=== PATIENT | female | born 1935 | race Caucasian/White ===

== ENCOUNTER 2016-10-26 05:45 | Emergency (ER) | payer MEDICARE, OTHER ==
[~2016-10-26] VITALS: Ht 157.5 cm; Wt 57.6 kg
[2016-10-26] MEDS ORDERED: NORCO 5-325 TA1 EACH PO ×2 (06:21→06:39)
[2016-10-26] MEDS ORDERED: TESSALON PERLE100 MG PO (06:22)
[2016-10-26] MEDS ORDERED: GLUCOPHAGE500 MG PO (06:30)
[2016-10-26] MEDS ORDERED: PENTOXIFYLLINE400 MG PO (06:30)
[2016-10-26] MEDS ORDERED: BUPROPION XL300 MG PO (06:31)
[2016-10-26] MEDS ORDERED: HYDROCODON-ACE1 EAC8 PO (06:33)
[2016-10-26] MEDS ORDERED: METOPROLOL SUC100 MG PO (06:34)
[2016-10-26] MEDS ORDERED: LOVASTATIN40 MG PO (06:35)
[2016-10-26] MEDS ORDERED: ADVAIR 100-501 EACH INH (06:36)
[2016-10-26] MEDS ORDERED: PROAIR RESPICL90 MCG INH (06:36)
[2016-10-26] MEDS ORDERED: SALONPAS-HOT1 EACH TOP (06:37)
[2016-10-26] MEDS ORDERED: MULTI VITAMIN1 EACH (06:37)
--- NOTE | 2016-10-30 08:46 | OR ---
[facility] [address], [place] [address] Signed DATE OF PROCEDURE: 10/26/16 PREOPERATIVE DIAGNOSIS: Dislocated total hip. POSTOPERATIVE DIAGNOSIS: Dislocated total hip. PROCEDURE PERFORMED Closed reduction, right total hip under conscious sedation. SURGEON: Mark Palafox MD RETAIL ASSET PROTECTION SPECIALIST: None. ANESTHESIA: Conscious sedation by Janes Santana CRNA. BLOOD LOSS: None. BRIEF HISTORY Raimundo is an 81-year-old female who suffered a ground level fall this morning. She dislocated her total hip. She has done this several times in the past. She was transported by EMS to [facility] emergency department. Radiographs showed a dislocated hip posteriorly. Risks and benefits of conscious sedation and reduction were discussed with her and she elected to proceed. DESCRIPTION OF PROCEDURE Once consent was obtained, she was placed under conscious sedation. She relaxed enough, the leg was flexed to 100 degrees, internally rotated 30 degrees. Axial traction was then applied with steady external rotation and the hip was felt to reduce. She was then taken into full extension. Post reduction radiographs show concentric reduction with no fractures. She will be discharged after placing her in a hip abduction brace that I have in my office. She will follow up with her orthopedic surgeon in [place] when she returns home. Mark Palafox MD BA/Manuel Electronically Signed By: MARK PALAFOX MD 10/30/16 0846 PATIENT NAME: TOMEKA CODY OPERATIVE REPORT DATE OF : 31 PHYSICIAN: MARK PALAFOX MD REPORT #: [id number] REPORT IS CONFIDENTIAL AND NOT TO BE RELEASED WITHOUT AUTHORIZATION [address] [address] Signed /[id number] Electronically Signed By: MARK PALAFOX MD 10/30/16 0846 PATIENT NAME: TOMEKA CODY OPERATIVE REPORT DATE OF : 31 PHYSICIAN: MARK PALAFOX MD REPORT #: [id number] REPORT IS CONFIDENTIAL AND NOT TO BE RELEASED WITHOUT AUTHORIZATION
== END 2016-10-26 09:05 | disposition home or self-care (01) ==
LOC: ED 05:45
DX: T84.020A Dislocation of internal right hip prosthesis, initial encounter (principal); F17.200 Nicotine dependence, unspecified, uncomplicated; Z88.2 Allergy status to sulfonamides; Z79.84 Long term (current) use of oral hypoglycemic drugs; Z79.51 Long term (current) use of inhaled steroids; Z79.899 Other long term (current) drug therapy
CPT/HCPCS: 27250; 73502; 80048; 85025; 96374; 96375; 96376; 99156; 99283; J1170; J2704; J3010; J7030